=== PATIENT | female | born 1965 | race Hispanic/Latino ===

== ENCOUNTER → 2023-08-06 | Outpatient (REF) | payer OTHER ==
[~2023-08-06] MED LIST: CITRICAL PO; COLLAGEN 15001 EACH PO; FAMOTIDINE20 MG PO; IBANDRONATE SO150 MG PO; LIPITOR10 MG PO; LISINOPRIL10 MG PO; METFORMIN HCL500 M2 PO; OMEPRAZOLE40 MG PO; PANTOPRAZOLE SO40 MG PO; PROBIOTIC & AC1 EACH PO; VIT C PO; VIT D3 PO; [UNRECOGNIZED DRUG - OTHER] PO
== END ==
LOC: MAMMO 10:44
PROVIDERS: ATTEND Obstetrics & Gynecology
DX: Z12.31 Encounter for screening mammogram for malignant neoplasm of breast (principal)
CPT/HCPCS: 77067

== ENCOUNTER → 2024-06-01 | Outpatient (REF) | payer OTHER | LOC: DX 09:54 | PROVIDERS: ATTEND Surgery | DX: K21.9 Gastro-esophageal reflux disease without esophagitis (principal) | CPT/HCPCS: 74246 ==

== ENCOUNTER → 2024-09-04 | Outpatient (REF) | payer OTHER | LOC: MAMMO 13:06 | PROVIDERS: ATTEND Internal Medicine | DX: Z12.31 Encounter for screening mammogram for malignant neoplasm of breast (principal) | CPT/HCPCS: 77067 ==